=== PATIENT | male | born 1995 | race Caucasian/White ===

== ENCOUNTER 2021-02-05 19:01 | Emergency (ER) | payer BC ==
[2021-02-05] MEDS ORDERED: Ketorolac 60 MG/2 ML SDV IM ONE (19:38)
--- NOTE | 2021-02-05 19:54 | EDM.PDOC ---
ED HPI GENERAL MEDICAL PROBLEM - General Chief Complaint: Back Pain or Injury Stated Complaint: BACK PAIN Time Seen by Provider: 02/05/21 19:23 Source of Information: Reports: Patient, RN Notes Reviewed History Limitations: Reports: No Limitations - History of Present Illness INITIAL COMMENTS - FREE TEXT/NARRATIVE: Patient is a 25-year-old male presenting to the emergency department with complaints of upper and right-sided back pain. He states he was having intercourse this morning when he felt "something pull" in his upper back. Since that time he has developed sharp pains with movement and when he takes a deep breath as well as intermittent "spasms "in the muscles. His [id number] gave him a Flexeril approximately 2 hours prior to coming to the ER and he states it made him sleep but he does not feel much different. Denies any recent falls or traumatic injuries to the area. He has no chronic medical conditions and takes no daily medications. back Pain Score (Numeric/FACES): 10 - Related Data Allergies Allergy/AdvReac Type Severity Reaction Status Date / Time No Known Allergies Allergy Verified 02/05/21 19:17 Home Meds: Home Meds Cyclobenzaprine [Flexeril] 10 mg PO TID PRN #10 tab 02/05/21 [Rx] Dextroamphetamine/Amphetamine [Adderall] 30 mg PO DAILY 02/05/21 [History] Naproxen [Naprosyn] 500 mg PO Q12HR 5 Days #10 tab 02/05/21 [Rx] Past Medical History - Past Health History Medical/Surgical History: Denies Medical/Surgical History Psychiatric History: Reports: ADD, ADHD Social & Family History - Tobacco Use Tobacco Use Status *Q: Current Every Day Tobacco User Years of Tobacco use: 4 Packs/Tins Daily: 0 - Recreational Drug Use Recreational Drug Use: No ED ROS GENERAL - Review of Systems Review Of Systems: See Below Constitutional: Reports: No Symptoms HEENT: Reports: No Symptoms Respiratory: Reports: No Symptoms Cardiovascular: Reports: No Symptoms Endocrine: Reports: No Symptoms GI/Abdominal: Reports: No Symptoms : Reports: No Symptoms Musculoskeletal: Reports: Back Pain Skin: Reports: No Symptoms Neurological: Reports: No Symptoms Psychiatric: Reports: No Symptoms Hematologic/Lymphatic: Reports: No Symptoms Immunologic: Reports: No Symptoms ED EXAM, UPPER BACK/NECK PAIN - Physical Exam Exam: See Below Exam Limited By: No Limitations General Appearance: Alert, WD/WN, No Apparent Distress Neck Exam: Non-Tender, Full Range of Motion, Normal Alignment, Normal Inspection Cardiovascular/Respiratory: Regular Rate, Rhythm, No M/R/G, Normal Peripheral Pulses, No JVD, Normal Breath Sounds, No Respiratory Distress Back Exam: Normal Inspection, Full Range of Motion, Muscle Spasm, Paraspinal Tenderness (Right lateral to T4-T7), Vertebral Tenderness (t4-t7) 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 He states he was having intercourse this morning when he felt something pull in his back. Has been having discomfort since that time. He did take Flexeril 10 mg prior to coming to the ER. On exam, he has tenderness over T4-T6 as well as right lateral tenderness. He complains of muscle spasms and pain with taking a deep breath. I ordered Toradol 60 mg IM to be given now. 02/05/21 20:01 Patient turned out his call light it states that he his ride is on the way and he would like to be discharged. I will write a prescription for Flexeril and Naprosyn. Discharge instructions as documented. Departure - Departure Time of Disposition: 19:59 Disposition: Home, Self-Care 01 Condition: Good Clinical Impression: Upper back strain Qualifiers: Encounter type: initial encounter Qualified Code(s): S29.012A - Strain of muscle and tendon of back wall of thorax, initial encounter - Discharge Information *PRESCRIPTION DRUG MONITORING PROGRAM REVIEWED*: No *COPY OF PRESCRIPTION DRUG MONITORING REPORT IN PATIENT LISETH: No Prescriptions: Cyclobenzaprine [Flexeril] 10 mg PO TID PRN #10 tab PRN Reason: Muscle Spasm Naproxen [Naprosyn] 500 mg PO Q12HR 5 Days #10 tab Instructions: Muscle Strain, [id number] Referrals: Akua Quiroga NP [Primary Care Provider] - Forms: ED Department Discharge Additional Instructions: You were seen in the emergency department this evening for upper upper back pain related to a muscle strain. You received Flexeril prior to coming to the ER. While in the ER, you received an injection of Toradol. A prescription for Flexeril and Naprosyn has been sent to [place] pharmacy. Uses medications as prescribed. Recommend intermittent heat to the areas of discomfort such as a hot pack or a warm shower. This will help release the muscle spasms. You may also use Tylenol as needed. Return to ER as needed. Sepsis Event Note (ED) - Evaluation Sepsis Screening Result: No Definite Risk - Focused Exam Vital Signs: Vital Signs Temp Pulse Resp BP Pulse Ox 02/05/21 19:13 98.1 F 100 18 129/84 98
== END 2021-02-05 20:23 | disposition home or self-care (01) ==
LOC: JD.ED 19:01
DX: S29.012A Strain of muscle and tendon of back wall of thorax, initial encounter (principal); Z79.899 Other long term (current) drug therapy; X58.XXXA Exposure to other specified factors, initial encounter
CPT/HCPCS: 96372; 99283; J1885

== ENCOUNTER 2022-04-11 22:02 | Emergency (ER) | payer BC | END 2022-04-11 23:05 | disposition home or self-care (01) | LOC: JD.ED 22:02 | DX: S61.212A Laceration without foreign body of right middle finger without damage to nail, initial encounter (principal); Z28.310 Unvaccinated for COVID-19; Z87.891 Personal history of nicotine dependence; Z86.16 Personal history of COVID-19; W26.8XXA Contact with other sharp object(s), not elsewhere classified, initial encounter; Y99.0 Civilian activity done for income or pay | CPT/HCPCS: 12001; 12011; 99282; 99282-25 ==

== ENCOUNTER 2023-11-04 17:44 | Emergency (ER) | payer SELFPAY ==
[2023-11-04] MEDS ORDERED: Ketorolac 30 MG/ML SDV IM ONE (18:32)
== END 2023-11-04 19:01 | disposition home or self-care (01) ==
LOC: JD.ED 17:44
DX: S52.92XA Unspecified fracture of left forearm, initial encounter for closed fracture (principal); F17.210 Nicotine dependence, cigarettes, uncomplicated; Z79.899 Other long term (current) drug therapy; Z86.16 Personal history of COVID-19; W23.0XXA Caught, crushed, jammed, or pinched between moving objects, initial encounter
CPT/HCPCS: 29125; 73110; 96372; 99283; J1885

== ENCOUNTER 2023-11-15 07:04 | Day surgery (SDC) | payer SELFPAY ==
[~2023-11-15 07:04] MED LIST: Bupivacaine 0.25% 10 ML SDV ONE; Dexamethasone 4 MG/ML 5 ML MDV ONE; EPINEPHrine 1 MG/ML SDV ONE; Lactated Ringers 1,000 ML IV SCH; Lidocaine 1% PF 2 ML SDV ONE; Midazolam 1 MG/ML 2 ML SDV ONE; Propofol 200 MG/20 ML SDV ONE; Ropivacaine 0.5% 5 MG/ML 30 ML SDV ONE; Sodium Chloride 0.9% 10 ML Syringe FLUSH PRN; dexmedeTOMIDine HCl 200 MCG/2 ML SDV ONE; fentaNYL 100 MCG/2 ML SDV ONE
[2023-11-15] MEDS ORDERED: ceFAZolin 2 GM Vial ONE (07:05)
[2023-11-15] MEDS ORDERED: Lidocaine 1% 6 ML ONE (07:05)
[2023-11-15] MEDS ORDERED: Succinylcholine 200 MG/10 ML MDV ONE (07:11)
[2023-11-15] MEDS ORDERED: Rocuronium 50 MG/5 ML Vial ONE (07:18)
[2023-11-15] MEDS ORDERED: Ondansetron 4 MG/2 ML SDV ONE (07:23)
[2023-11-15] MEDS ORDERED: Metoclopramide 10 MG/2 ML SDV ONE (07:23)
[2023-11-15] MEDS ORDERED: fentaNYL 100 MCG/2 ML SDV ONE (07:28)
[2023-11-15] MEDS ORDERED: Lactated Ringers 1,000 ML ONE (07:43)
[2023-11-15] MEDS ORDERED: Sodium Chloride 0.9% 10 ML Syringe FLUSH SCH (09:00)
== END 2023-11-15 09:40 | disposition home or self-care (01) ==
LOC: JD.SDS 07:04
PROVIDERS: ATTEND Orthopaedic Surgery
DX: G54.0 Brachial plexus disorders (principal); Z79.899 Other long term (current) drug therapy; Z87.891 Personal history of nicotine dependence
CPT/HCPCS: 25608; 64417; 76000; C1713; C1776; J0171; J0330; J0690; J1100; J2250; J2405; J2704; J2765; J2795; J3010; J7120; 01830; J3490

== ENCOUNTER 2025-11-10 10:32 | Emergency (ER) | payer SELFPAY ==
[2025-11-10 11:10] LABS: BASOPHILS ABSOLUTE AUTO 0.0 K/mm3 (0.0-0.2); BASOPHILS PERCENT AUTO 0.5 % (0.0-1.0); EOSINOPHILS ABSOLUTE AUTO 0.1 K/mm3 (0.0-0.4); EOSINOPHILS PERCENT AUTO 0.6 % (0.0-6.0); IMMATURE GRAN ABSOLUTE AUTO 0.02 K/mm3 (0.00-0.05); IMMATURE GRAN PERCENT AUTO 0.3 % (0.0-0.4); LYMPHOCYTES ABSOLUTE AUTO 1.6 K/mm3 (1.0-4.8); LYMPHOCYTES PERCENT AUTO 20.3 % (24.0-44.0); MEAN PLATELET VOLUME 8.7 fl (9.4-12.4); MONOCYTES ABSOLUTE AUTO 0.6 K/mm3 (0.0-0.8); MONOCYTES PERCENT AUTO 7.3 % (0.0-8.0); NEUTROPHILS ABSOLUTE AUTO 5.6 K/mm3 (1.8-7.7); NEUTROPHILS PERCENT AUTO 71.0 % (41.0-71.0); NRBC ABSOLUTE 0.00 (0.00-0.02); NRBC PERCENT 0.0 % (0.0-0.2); PLATELET COUNT,PLT 397 K/mm3 (150-400); RED BLOOD CELL COUNT 5.65 M/mm3 (4.52-5.90); WHITE BLOOD CELL COUNT,WBC 7.83 K/mm3 (3.9-11.3)
[2025-11-10 11:34] LABS: A/G RATIO 1.0 (1-2); ALANINE AMINOTRANSFERASE,ALT 57.0 U/L (16-63); ASPARTATE AMNIOTRANSFERASE,AST 42.0 U/L (15-37); BILIRUBIN TOTAL 0.5 mg/dL (0.2-1.0); BLOOD UREA NITROGEN,BUN 7.0 mg/dL (7-18); CARBON DIOXIDE,CO2 24.0 mEq/L (21-32); CHLORIDE,CL 108.0 mEq/L (98-107); CREATININE 0.9 mg/dL (0.7-1.3); EST CRCL DRUG DOSING (CG) 116.55 mL/min; ESTIMATED GFR 119.0 mL/min (>60); ETHANOL BLOOD MEDICAL 0.25 gm% (0.00); GLUCOSE RANDOM 92.0 mg/dL (70-99); POTASSIUM,K 3.9 mEq/L (3.5-5.1); PROTEIN TOTAL,TP 8.4 g/dl (6.4-8.2); SODIUM,NA 145.0 mEq/L (136-145)
== END 2025-11-10 11:23 | disposition home or self-care (01) ==
LOC: JD.ED 10:32
DX: Z00.00 Encounter for general adult medical examination without abnormal findings (principal); Z86.16 Personal history of COVID-19; Z79.899 Other long term (current) drug therapy
CPT/HCPCS: 36415; 80053; 80307; 85025; 99284